=== PATIENT | male | born 1985 | race Caucasian/White ===

== ENCOUNTER 2017-03-08 20:21 | Emergency (ER) | payer OTHER ==
[~2017-03-08] VITALS: Ht 167.6 cm; Wt 61.2 kg
[2017-03-08 20:41] VITALS: BP 132/88
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
[2017-03-08 21:09] VITALS: BP 132/88
== END 2017-03-08 21:35 | disposition home or self-care (01) ==
LOC: EMR 21:32
DX: H11.32 Conjunctival hemorrhage, left eye (principal); Z88.0 Allergy status to penicillin; Z88.2 Allergy status to sulfonamides
CPT/HCPCS: 99282